=== PATIENT | female | born 1995 | race Two or more races ===

== ENCOUNTER 2019-11-02 21:22 | Emergency (ER) | payer OTHER ==
[~2019-11-02] VITALS: Ht 157.5 cm; Wt 69.1 kg
[2019-11-02] MEDS ORDERED: NS 1,000 ML IV ONE (21:45)
[2019-11-02] MEDS ORDERED: KETOROLAC 30 MG/ML VIAL (J1885) IV ONE (22:15)
[2019-11-02 22:25] LABS: BASO # 0.1 10^3/uL (0.0-0.2); BASO % 0.8 % (0.0-1.0); EOS # 0.1 10^3/uL (0.0-0.5); EOS % 1.5 % (0.0-3.0); HEMATOCRIT 38.1 % (36.0-47.0); HEMOGLOBIN 12.1 g/dl (12.0-15.5); LYMPH # 1.7 10^3/uL (1.5-5.0); LYMPH % 21.2 % (24.0-44.0); MEAN CORPUSCULAR HEMOGLOBIN 28.1 pg (27.0-33.0); MEAN CORPUSCULAR HGB CONC 31.8 g/dl (32.0-36.5); MEAN CORPUSCULAR VOLUME 88.6 fl (80.0-96.0); MONO # 0.8 10^3/uL (0.0-0.8); MONO % 9.5 % (0.0-5.0); NEUTROPHILS # 5.3 10^3/uL (1.5-8.5); NEUTROPHILS % 66.7 % (36.0-66.0); PLATELET COUNT, AUTOMATED 320 10^3/uL (150-450); WHITE BLOOD COUNT 7.9 10^3/uL (4.0-10.0)
[2019-11-02 22:50] LABS: ALBUMIN 3.3 GM/DL (3.2-5.2); BILIRUBIN,DIRECT 0.1 MG/DL (0.0-0.2); BILIRUBIN,TOTAL 0.6 MG/DL (0.2-1.0); TOTAL PROTEIN 7.4 GM/DL (6.4-8.2)
--- NOTE | 2019-11-02 23:38 | REPVR ---
PROCEDURE INFORMATION: Exam: US Abdomen Limited, Right Upper Quadrant Exam date and time: 11/02/2019 11:17 PM Age: 23 years old Clinical indication: Abdominal pain; Acute; Additional info: Ruq pain R/O cholecystitis TECHNIQUE: Imaging protocol: Real-time ultrasound of the abdomen with image documentation. Examination was focused on the right upper quadrant. COMPARISON: No relevant prior studies available. FINDINGS: Liver: Liver is unremarkable. Gallbladder: Gallbladder is partially contracted. No gallbladder wall thickening. Gallbladder wall measures up to 2.8 mm in thickness. No gallstones. Common bile duct: CBD measures 3.2 mm in diameter. Pancreas: Visualized pancreas is unremarkable. Right kidney: Right kidney measures 11.5 cm in length. No right hydronephrosis. No renal masses. Intraperitoneal space: No free fluid. IMPRESSION: 1. Gallbladder is unremarkable. 2. Unremarkable right upper quadrant ultrasound. Electronically signed by: Sanchez Rhoades On 11/02/2019 23:38:25 PM
[2019-11-02] MEDS ORDERED: ISOVUE-370 76% 100ML VIAL (Q9967) As Ordered ONE (23:50)
--- NOTE | 2019-11-03 00:22 | REPVR ---
PROCEDURE INFORMATION: Exam: CT Abdomen And Pelvis With Contrast Exam date and time: 11/03/2019 12:02 AM Age: 23 years old Clinical indication: Abdominal pain; Additional info: Rlq pain, + rovsing, mcburney point tenderness TECHNIQUE: Imaging protocol: Computed tomography of the abdomen and pelvis with intravenous contrast. Radiation optimization: All CT scans at this facility use at least one of these dose optimization techniques: automated exposure control; mA and/or kV adjustment per patient size (includes targeted exams where dose is matched to clinical indication); or iterative reconstruction. Contrast material: ISO 370; Contrast volume: 100 ml; Contrast route: IV; COMPARISON: GALLBLADDER US 11/02/2019 11:07 PM FINDINGS: Liver: Normal. No mass. Gallbladder and bile ducts: Normal. No calcified stones. No ductal dilation. Pancreas: Normal. No ductal dilation. Spleen: Normal. No splenomegaly. Adrenals: Normal. No mass. Kidneys and ureters: Normal. No hydronephrosis. Stomach and bowel: Moderate stool in the colon. No abnormal bowel dilatation. Mild thickening of the distal ileum. Negative for colonic diverticulitis. Appendix: Appendix is mildly thickened, however there is normal gas within the lumen of the appendix. Intraperitoneal space: Mild haziness of the intraperitoneal fat in the right lower quadrant. No free air. No significant fluid collection. Vasculature: Unremarkable. No abdominal aortic aneurysm. Lymph nodes: Unremarkable. No enlarged lymph nodes. Bladder: Unremarkable as visualized. Reproductive: Fat containing lesion in the right adnexal region measuring 4.9 x 4.4 x 4.2 cm with soft tissue components and punctate calcification. Uterus is normal. Bones/joints: Unremarkable. No acute fracture. Soft tissues: Unremarkable. IMPRESSION: 1. Appendix is mildly thickened, however, there is normal gas within the lumen of the appendix. Doubtful for acute appendicitis. 2. Mild thickening of the distal ileum. Suspicious for ileitis. 3. 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 Recommend routine surveillance to assess growth. Electronically signed by: Sanchez Rhoades On 11/03/2019 00:21:38 AM
[2019-11-03] MEDS ORDERED: CIPR-249 PO (00:55)
[2019-11-03] MEDS ORDERED: CIPROFLOXACIN 500 MG TAB PO ONE (01:15)
[2019-11-03 01:18] VITALS: BP 104/55
--- NOTE | 2019-11-03 11:35 | ED PDOC ---
Post-Departure Follow-Up ct abd/p faxed to [facility] for [facility] Ita Alonso MD Nov 03, 2019 11:35
== END 2019-11-03 01:20 | disposition home or self-care (01) ==
LOC: M ED 21:22
DX: D27.0 Benign neoplasm of right ovary (principal)
CPT/HCPCS: 74177; 76705; 80047; 80076; 81001; 83690; 84702; 85025; 87088; 87186; 96361; 96374; 99284; J1885; Q9967

== ENCOUNTER 2021-10-14 02:31 | Emergency (ER) | payer OTHER ==
[~2021-10-14] VITALS: Ht 157.5 cm; Wt 75.2 kg
[~2021-10-14 02:31] MED LIST: CIPR-249 PO
[2021-10-14] MEDS ORDERED: ONDANSETRON 4MG/2ML VIAL As Ordered ONE (02:43)
[2021-10-14] MEDS: ONDANSETRON 4MG/2ML VIAL IV ONE (02:50)
[2021-10-14 02:53] LABS: BASO # 0.1 10^3/uL (0.0-0.2); BASO % 0.7 % (0.0-1.0); EOS # 0.1 10^3/uL (0.0-0.5); EOS % 0.7 % (0.0-3.0); HEMATOCRIT 39.9 % (36.0-47.0); HEMOGLOBIN 13.1 g/dl (12.0-15.5); LYMPH # 3.5 10^3/uL (1.5-5.0); LYMPH % 40.3 % (24.0-44.0); MEAN CORPUSCULAR HEMOGLOBIN 28.2 pg (27.0-33.0); MEAN CORPUSCULAR HGB CONC 32.8 g/dl (32.0-36.5); MONO # 0.7 10^3/uL (0.0-0.8); MONO % 7.7 % (2.0-8.0); NEUTROPHILS # 4.3 10^3/uL (1.5-8.5); NEUTROPHILS % 50.4 % (36.0-66.0); PLATELET COUNT, AUTOMATED 320 10^3/uL (150-450); RED BLOOD COUNT 4.64 10^6/uL (4.00-5.40); WHITE BLOOD COUNT 8.6 10^3/uL (4.0-10.0)
[2021-10-14 03:36] LABS: ACETAMINOPHEN LEVEL < 2.0 UG/ML (10.0-30.0); ALBUMIN 3.7 GM/DL (3.2-5.2); ALT/SGPT 22 U/L (12-78); BILIRUBIN,DIRECT 0.1 MG/DL (0.0-0.2); BILIRUBIN,TOTAL 0.4 MG/DL (0.2-1.0); BLOOD UREA NITROGEN 7 MG/DL (7-18); CALCIUM LEVEL 8.4 MG/DL (8.5-10.1); CARBON DIOXIDE LEVEL 23 MEQ/L (21-32); CHLORIDE LEVEL 108 MEQ/L (98-107); CREATININE FOR GFR 0.69 MG/DL (0.55-1.30); ETHYL ALCOHOL (ETHANOL) 0.301 % (0.000-0.010); GLOMERULAR FILTRATION RATE > 60.0 (>60); GLUCOSE, FASTING 135 MG/DL (70-100); HCG, SERUM QUANTITATIVE < 1.0 MIU/ML; POTASSIUM SERUM 3.3 MEQ/L (3.5-5.1); SALICYLATE LEVEL < 1.7 MG/DL (5.0-30.0); SODIUM LEVEL 141 MEQ/L (136-145); TOTAL PROTEIN 8.1 GM/DL (6.4-8.2)
[2021-10-14] MEDS: NS 1,000 ML IV ONE (04:10)
[2021-10-14] MEDS: POTASSIUM CHLORIDE 10MEQ SR TABLET PO ONE (05:44)
[2021-10-14 06:00] VITALS: BP 105/61
== END 2021-10-14 06:24 | disposition home or self-care (01) ==
LOC: M ED 02:31
DX: F10.929 Alcohol use, unspecified with intoxication, unspecified (principal); R94.31 Abnormal electrocardiogram [ECG] [EKG]
CPT/HCPCS: 80048; 80076; 80143; 82077; 84443; 84702; 85025; 93005; 93041; 94760; 96361; 96374; 99285; J2405